=== PATIENT | female | born 1980 ===

== ENCOUNTER → 2023-08-15 18:58 | Outpatient (REF) | payer OTHER, SELFPAY | LOC: WDC 18:58 | PROVIDERS: ATTENDING PHYSICIAN Physician Assistant Medical | DX: Z12.31 Encounter for screening mammogram for malignant neoplasm of breast (principal) | CPT/HCPCS: 77063; 77067 ==

== ENCOUNTER → 2023-08-17 17:08 | Outpatient (REF) | payer OTHER, SELFPAY | LOC: RAD 17:08 | PROVIDERS: ATTENDING PHYSICIAN Physician Assistant Medical | DX: N92.6 Irregular menstruation, unspecified (principal); R22.2 Localized swelling, mass and lump, trunk | CPT/HCPCS: 76705 ==

== ENCOUNTER → 2024-08-15 19:14 | Outpatient (REF) | payer OTHER, SELFPAY | LOC: WDC 19:14 | PROVIDERS: ATTENDING PHYSICIAN Family Medicine | DX: Z12.31 Encounter for screening mammogram for malignant neoplasm of breast (principal) | CPT/HCPCS: 77063; 77067 ==